=== PATIENT | male | born 1980 | race Caucasian/White ===

== ENCOUNTER 2016-10-31 09:53 | Day surgery (SDC) | payer OTHER ==
[2016-10-31] VITALS (11 sets, daily range): BP systolic 103–121; BP diastolic 56–85; PULSE 51–62; RESP 14–22; O2SAT 93–99
[~2016-10-31] VITALS: Ht 182.9 cm; Wt 101.0 kg
[~2016-10-31 09:53] MED LIST: BUSP10TA2 PO; CeFAZolin Inj 2 GM in IV Premix 1 EACH IV ONE; MELO7.5O PO; OXCA600T3 PO
[2016-10-31] MEDS ORDERED: Ondansetron 2 mg/mL 2 mL Inj ONE (09:54)
[2016-10-31] MEDS ORDERED: Dexamethasone 4 mg/mL Inj ONE (09:54)
[2016-10-31] MEDS ORDERED: Propofol 10,000 mCg/mL 20 mL Inj ONE (09:54)
[2016-10-31] MEDS ORDERED: Rocuronium 10 mg/mL 5 mL Inj ONE (09:54)
[2016-10-31] MEDS ORDERED: fentaNYL-PF 50 mCg/mL 2 mL Inj ONE (09:54)
[2016-10-31] MEDS: Lactated Ringer's 1,000 ML IV SCH ×3 (10:13→12:58)
--- NOTE | 2016-10-31 10:41 | PCM.HPANE ---
Patient Data Surgeon Admitting Provider: Attending Provider:Jhoan Collado MD Primary Care Physician:Barbara Sue MD Other Provider:Lindsey Mcleodingham Anesthesia Reason for Visit Right Rotator Cuff Tear Ht/WT & BMI Height (Feet): 6 Height (Inches): 0 Weight (Kilograms): 101 Body Mass Index 30.00 Allergies Coded Allergies: No Known Allergies (Unverified Allergy, Unknown, 11/11/15) Past Anesthesia History Anesthesia History: Denies:: Anesthesia Reactions Diabetes History Hx Diabetes?: No MRSA MRSA: No Medications Hypertension Medication: No Home Meds Incl Beta Jigar: No Reported Medications Oxcarbazepine (Trileptal)600 Mg [id number] Mg PO BID 30 Days 10/26/16 Meloxicam 7.5 Mg/5 Ml Oral.susp15 Mg PO DAILY 30 Days 10/26/16 Buspirone 10 Mg [id number] Mg PO BID Ref 0 10/26/16 Discontinued Reported Medications Oxcarbazepine (Trileptal)600 Mg [id number] Mg PO BID 30 Days 11/11/15 Buspirone 10 Mg [id number] Mg PO BID Ref 0 11/11/15 History History of ENT Problems?: No Denture Type: Retainer/Pastoral Counselor Hx of Heart Problems?: No Cardiovascular History: Denies:: Hypertension Hx of Respiratory Problem?: No Respiratory History: Denies:: Asthma COPD Emphysema Oxygen Administration Pneumonia Tuberculosis Use of C-PAP Machine Use of Inhalers / NEBS Hx Neurologic Problems?: Yes Neurological History: Positive for:: Headaches Denies:: CVA Multiple Sclerosis Parkinson's Disease Seizures Hx of GI Problems?: Yes Gastrointestinal History: Denies:: Gall Bladder Disease Gastroesphageal Reflux Heartburn Other GI Pertinent History: hx of umbilical hernia surgery Hx of Problems?: No Male Hx: Denies:: Prostate Problems Scrotal Mass Testicular Surgery Skin History: Denies:: History Skin Disorders? Pressure Ulcers Hx Musculoskeletal Problems?: Yes Musculoskeletal History: Positive for:: Back Injury (cervical stenosis) Hx of Psycho/Social Problems?: Yes Psycho Social History: Positive for:: Anxiety Hx Depression Denies:: Bipolar Disorder Suicide Attempt Hx Surgeries?: Yes (umbilical hernia repair) Hx Any Other Health Problems?: Yes Other History: Denies:: Cancer Hospitalization Thyroid Disease Hx Diabetes: No Hx Substance Use: Yes (hx of cocaine, heroin, meth- not current per surgeon H+P ) Smoking Status: Unknown if Ever Smoker Have You Smoked inLast 12 mo: No Stop/Bang S-Snoring: Do You Snore Loudly: No T-Tired: feel tired, fatigued: No O-Obsered: Observed not breath: No P-Blood Pressure: treated: No B- Body Mass Index > 35 kg/m2: No A- Age over 50: No N- Neck Large Circumference: No G- Gender Male: Yes LEE Total Score: 1 LEE Risk Assessment: Low Risk, <3 Yes Risk Assessment Category Category 1A: Patient has history of documented sleep apnea, and HAS NOT received any narcotic, sedative or anesthesia administration during this stay. Category 1B: Patient has history of documented sleep apnea, and HAS received any narcotic , sedative or anesthesia administration during this stay Category 2: Patient has SUSPECTED Obstructive Sleep Apnea, and HAS received any narcotic , sedative or anesthesia administration during this stay. Category 3: Patient has SUSPECTED Obstructive Sleep Apnea and HAS NOT received narcotic, sedative or anesthesia administration during this stay. Category 4: Outpatient in Procedural Areas with known sleep apnea or who screen positive for High Risk via the STOP/BANG questionnaire. Exam Exam Vital Signs Vital Signs Date Time Temp Pulse Resp B/P Pulse Ox O2 Delivery O2 Flow Rate FiO2 10/31/16 10:14 35.9 57 16 119/85 97 Room Air Meds/Labs/Diagnostics Admission Meds Current Medications Lactated Ringer's (Lr) 1,000 ml @ 120 mls/hr [id number] IV Last administered on t 10:13; Start 10/31/16 at 05:00; Stop 10/31/16 at 13:19 Plan Impression Patient chart reviewed, patient interviewed and anesthestic plan with risks, benefits, and alternatives discussed, and informed consent obtained. NPO Status: [id number] 10/31 gAustín Dee MD Oct 31, 2016 10:41
[2016-10-31] MEDS ORDERED: Lactated Ringer's 1,000 ML IV SCH (11:59)
[2016-10-31] MEDS ORDERED: Lactated Ringer's 500 ML IV PRN (11:59)
[2016-10-31] MEDS ORDERED: fentaNYL-PF 50 mCg/mL 2 mL Inj IVPUSH PRN (12:00)
[2016-10-31] MEDS ORDERED: HYDROmorphone 1 mg/mL Inj IVPUSH PRN (12:00)
[2016-10-31] MEDS ORDERED: hydrALAZINE 20 mg/mL Inj IVPUSH PRN (12:00)
[2016-10-31] MEDS ORDERED: Phenylephrine 10,000 mCg/mL Inj IVPUSH PRN (12:00)
[2016-10-31] MEDS ORDERED: Atropine 0.4 mg/mL Inj IVPUSH PRN (12:00)
[2016-10-31] MEDS ORDERED: MetoCLOpramide 5 mg/mL 2 mL Inj IVPUSH PRN (12:00)
[2016-10-31] MEDS ORDERED: Labetalol 5 mg/mL 4 mL Inj IV PRN (12:00)
[2016-10-31] MEDS ORDERED: EPHEDrine Sulfate 50 mg/mL Inj IVPUSH PRN (12:00)
[2016-10-31] MEDS ORDERED: Ondansetron 2 mg/mL 2 mL Inj IVPUSH PRN (12:00)
[2016-10-31] MEDS ORDERED: Dexamethasone 4 mg/mL Inj IVPUSH PRN (12:00)
[2016-10-31] MEDS ORDERED: Ropivacaine-PF 0.5% 30 mL Inj INJ ONE (12:45)
[2016-10-31] MEDS ORDERED: Ketorolac 15 mg/mL Inj IVPUSH ONE (13:00)
[2016-10-31] MEDS ORDERED: HYDROcodone-APAP 5-325 mg Tablet PO PRN (13:00)
--- NOTE | 2016-10-31 13:08 | PCM.ORTHOP ---
Orthopedic Operative Report Date of Service: Oct 31, 2016 Pre Operative Diagnosis Right shoulder rotator cuff tear, impingement syndrome, acromioclavicular joint arthritis Post Operative Diagnosis Right shoulder labral fraying, impingement syndrome, acromioclavicular joint arthritis Procedure Right shoulder arthroscopy, labral debridement, subacromial decompression, distal clavicle excision, partial synovectomy. Surgeon Surgeon: Jhoan oCllado MD Assistants: Ronan Guo Indication for Procedure Right shoulder impingement syndrome Findings Severe acromioclavicular joint arthritis, 5 mm subacromial spur, superior and anterior labral fraying, moderate to severe synovitis Details of Procedure KEEL PRESS OPERATOR SURGEON: During the operation, the services of physician surgical technologist were medically indicated and necessary to provide exposure of the operative site for the surgical procedure and to maintain the limb in a proper position to carry out the operation safely and efficiently. Without the qualified unit assistant being present, it would have extended the operative procedure and made the procedure technically more difficult to perform. INDICATIONS: The patient is Moreno Whitfield is a 36-year-old male with right shoulder pain. The risks, benefits, and alternatives of surgery were discussed with the patient. The risks included but were not limited to infection, bleeding, damage to vessels and nerves, loss of motion, continued pain, complications due to anesthesia including myocardial infarction, stroke, , etc. The patient stated understanding of the nature of the surgical procedure and gave written and verbal consent to proceed. PROCEDURE: The patient was brought into the operating room and placed supine on the operating room table. An interscalene block was placed in the right shoulder for postoperative pain management, followed by the administration of general anesthesia. . The patient was then placed into the lateral decubitus position with the right side up. An axillary role was placed and the legs were padded as necessary to avoid pressure points. The patient was maintained in position with a beanbag evacuation device. A thorough examination of the right shoulder under anesthesia was performed. The patient had 120 degrees of forward elevation and 10 degrees of abduction. In 90 degrees of abduction there was 40 degrees of external rotation and 40 degrees of internal rotation. The shoulder was stable to load-shift testing. The right upper extremity was then prepped and draped in the usual fashion. The arm was suspended with a well-padded sleeve with eight/ten pounds of balanced suspension in the arthroscopic position. A standard posterior portal was made inferior and medial to the posterior corner of the acromion. The incision was made only through skin. The trocar was advanced through the soft tissue with a blunt-tipped obturator. This was inserted into the glenohumeral joint without difficulty. The 4 mm arthroscope was placed through the cannula and attached to the video monitor system. Inflow was achieved using the arthroscopic pump. The pressure was maintained at 35-40 mm of mercury throughout the entire procedure. Once the arthroscope confirmed visualization within the shoulder joint, it was advanced anteriorly into the rotator interval beneath the biceps tendon. A Wissinger isael was then used to create the anterior portal from inside-out. A second anterior stab wound incision was made only through skin and an anterior cannula was placed. A routine arthroscopic survey was begun. Superior anterior fraying of the labrum was debrided with a shaver. The biceps was intact with no signs of tendinitis. Survey:Severe acromioclavicular joint arthritis, 5 mm subacromial spur, superior and anterior labral fraying, moderate to severe synovitis The arm was then placed in the bursoscopy position. Complex surgical procedure: This was an extremely complex surgical procedure which took approximately 30-40 % longer to complete than a standard repair. Without the use of a qualified catering administrative assistant, this surgical procedure would have taken even considerably longer and been unable to be performed arthroscopically. Kimberlee procedure: Within the subacromial space there was marked fraying on the undersurface of the coracoacromial ligament consistent with impingement. A decision was thus made to proceed with arthroscopic subacromial decompression. Using an RF wand and a motorized shaver the coracoacromial ligament was recessed from the anterior acromial edge. An orientation trough was made along the lateral margin of the acromion, from the anterior corner back to the posterior margin of the AC joint. A sequential subacromial smoothing was carried out, removing approximately 5 mm of bone corresponding to the preoperative radiographs. Once completed, the AC joint capsule was opened. There was inferior spurring as well as synovitis and arthritic changes at the AC joint and a decision was made to proceed with distal clavicle excision. Using a motorized bur working initially from posteriorly and then anteriorly, the outer 10 mm of the distal clavicle were excised. The arthroscope was then positioned anteriorly within the AC resection site confirming an excellent level of resection. There was moderate to severe synovitis and bursitis in the subacromial space, the combination of shaver and RF wand was used to debride the extensive synovitis. The arm was placed through a range of motion and the rotator cuff and humeral head moved well as a unit. There was no further evidence of impingement. The subacromial space was irrigated with an additional liter of lactated Ringer s solution and excess fluid was drained. The arthroscopic portals were closed with #4-0 Nylon and Steri-Strips. A dry sterile dressing was applied, followed by a neutral rotation sling. The patient was awakened in the operating room and transported to the recovery room in satisfactory condition. The patient appeared to tolerate the procedure well. There were no complications noted. Grafts, Implants: None Complications There were no periprocedural complications identified. Condition Stable Anesthetic Administered: GA Catheters: None Output, Estimated Blood Loss: 5 Blood Admin during surgery: No Surgical Cast or Splint: Shoulder Immobilizer, Other Surgical Specimen Removed: Not applicable Specimen sent to Pathology: Not applicable copies to: Jhoan Collado MD, Christopher L MD Oct 31, 2016 13:08
--- NOTE | 2016-10-31 14:12 | PCM.ANEP1 ---
Post Anesthesia Phase 1 PACU Phase 1 Assessment Date of Service: Oct 31, 2016 Vital Signs Vital Signs Date Time Temp Pulse Resp B/P Pulse Ox O2 Delivery O2 Flow Rate FiO2 10/31/16 13:34 35.9 52 14 105/66 93 Room Air 10/31/16 13:30 51 15 103/61 94 Room Air 10/31/16 13:25 58 18 110/60 94 Room Air 10/31/16 13:20 36.2 59 22 109/65 94 Room Air 10/31/16 13:14 60 17 110/68 94 Room Air 10/31/16 13:10 58 19 114/61 94 Room Air 10/31/16 13:05 58 20 112/59 98 Room Air 10/31/16 13:00 62 21 115/65 99 Simple Mask 8 10/31/16 12:59 36.1 56 20 121/67 99 Simple Mask 8 10/31/16 10:14 35.9 57 16 119/85 97 Room Air Anesthetic Administered: GA Level of Alertness: Awake, talking GUZMAN's with Equal Strength: Yes Pain: No Nausea or Vomiting: No Oxygen Delivery: Room Air Lungs: Clear to Auscultation Dermatome Level: Full Sensation Agustín Dee MD Oct 31, 2016 14:12
--- NOTE | 2016-10-31 14:43 | PCM.ANEP2 ---
Post Anesthesia Evaluation ASA/CMS Post Anesthesia VS in Patient's Normal Range?: Yes Resp Stable; Airway Patent?: Yes CV Function & Hydration Stable: Yes Mental Status Recovered?: Yes Pain control Satisfactory?: Yes N/V Control Satisfactory?: Yes Agustín Dee MD Oct 31, 2016 14:42
== END 2016-10-31 23:59 | disposition home or self-care (01) ==
LOC: SAS 09:53
PROVIDERS: ATTEND Orthopaedic Surgery
DX: M75.41 Impingement syndrome of right shoulder (principal); M19.011 Primary osteoarthritis, right shoulder; M71.9 Bursopathy, unspecified; M75.21 Bicipital tendinitis, right shoulder
CPT/HCPCS: 29824; 29826; 76942; C1713; J0690; J1100; J2250; J2405; J2765; J2795; J3010; J7120